=== PATIENT | male | born 1980 | race Caucasian/White ===

== ENCOUNTER 2019-12-07 15:43 | Emergency (ER) | payer MEDICARE, OTHER ==
[~2019-12-07] VITALS: Ht 177.8 cm; Wt 84.3 kg
[~2019-12-07 15:43] MED LIST: HYDR-3583 PO; NAPR-243 PO; PANT40SU; PENI500T PO; PRM25T PO; QUET100T; TRM50T PO; ZIPR60CA6
[2019-12-07 15:59] VITALS: BP 131/94
[2019-12-07] MEDS ORDERED: DOXY100T2 PO (16:06)
--- NOTE | 2019-12-07 16:07 | ED Lower Extremity ---
General Chief Complaint: Lower Extremity Stated Complaint: TOE PROBLEM Source: patient Exam Limitations: no limitations History of Present Illness Date Seen by Provider: Dec 07, 2019 Time Seen by Provider: 16:03 Initial Comments Wound to the dorsal aspect noted for a few days. Unsure what happened. He suspects a spider bit him or it's an abscess. No fevers no chills. Does not recall being bitten by anything. He cleaned this with Betadine, cut it open with a razor blade. States some thick puslike material out. Onset: just prior to arrival Severity: moderate Pain/Injury Location: right 1st toe Method of Injury: unknown Modifying Factors: Worse With Movement Allergies and Home Medications Allergies Uncoded Allergies: NKDA (Allergy, Mild, 01/12/09) Home Medications Naproxen 500 Mg Tablet, 1 EACH PO BID PRN for PAIN FOR PAIN Prescribed by: IRINA SANTOS on 07/28/13 1258 Tramadol Hcl 50 Mg Tab, 50 MG PO Q4-6HR PRN for PAIN FOR PAIN Prescribed by: IRINA SANTOS on 07/28/13 1258 Patient Home Medication List Home Medication List Reviewed: Yes Review of Systems Constitutional: see HPI EENTM: see HPI Respiratory: no symptoms reported Cardiovascular: no symptoms reported Genitourinary: no symptoms reported Musculoskeletal: no symptoms reported Skin: see HPI Psychiatric/Neurological: No Symptoms Reported Past [id number] Hx Patient Social History Recent Foreign Travel: No Contact w/Someone Who Travel: No Past Medical History Reproductive Disorders: No Sexually Transmitted Disease: No Physical Exam Vital Signs Capillary Refill : Height, Weight, BMI Height: 5'10" Weight: 230lbs. oz. [id number]; BMI Method:Stated General Appearance: WD/WN, no apparent distress Neck: non-tender, full range of motion Respiratory: no respiratory distress, no accessory muscle use Hips: bilateral hip non-tender, bilateral hip normal inspection, bilateral hip normal range of motion Legs: bilateral leg non-tender, bilateral leg normal inspection, bilateral leg normal range of motion Knees: bilateral knee non-tender, bilateral knee normal inspection, bilateral knee normal range of motion Ankles: bilateral ankle non-tender, bilateral ankle normal inspection, bilateral ankle normal range of motion Feet: left foot other (left great toe has an eschar over the dorsal aspect of it. Little bit of erythema. No fluctuance to suggest a drainable abscess at this time.) Neurologic/Psychiatric: alert, normal mood/affect, oriented x 3 Skin: normal color, warm/dry Departure Impression Primary Impression: Soft tissue infection Disposition: 01 HOME, SELF-CARE Condition: Stable Departure-Patient Inst. Decision time for Depature: 16:05 Referrals: NO,LOCAL PHYSICIAN (PCP/Family) Primary Care Physician Patient Instructions: Wound Infection Add. Discharge Instructions: 1. Warm compresses/soaks to the area. Antibiotics as directed. Return to ER for any worsening. All discharge instructions reviewed with patient and/or family. Voiced understanding. Scripts Doxycycline Hyclate (Doxycycline Hyclate) 100 Mg Tablet 100 MG PO BID, #14 TAB 0 Refills Prov: IRINA SANTOS APRN 12/07/19 IRINA SANTOS APRN Dec 07, 2019 16:07
== END 2019-12-07 16:16 | disposition home or self-care (01) ==
LOC: EDUNIT# 15:43 → ER 15:45
DX: L08.9 Local infection of the skin and subcutaneous tissue, unspecified (principal)
CPT/HCPCS: 99283